=== PATIENT | female | born 1990 | race Native Hawaiian/Other Pacific Islander ===

== ENCOUNTER 2023-04-18 13:45 | Emergency (ER) | payer OTHER, SELFPAY ==
[2023-04-18 14:10] VITALS: PULSE 79; RESP 18; TEMP 36.9; O2SAT 99; BMI 31.1
--- NOTE | 2023-04-18 14:24 | ED_ITS ---
Discharge Plan Disposition Patient Disposition: Home, Self-Care Condition: Good Prescriptions Prescriptions: New phenazopyridine [Pyridium] 200 mg tablet 200 mg PO Q8H 2 Days Qty: 6 0RF ondansetron 4 mg Tablet,Disintegrating 4 mg PO Q8H PRN (Reason: Nausea) Qty: 12 0RF nitrofurantoin monohyd/m-cryst [Macrobid] 100 mg Capsule 100 mg PO BID Qty: 10 0RF Rx Instructions: must administer with a meal/food No Action montelukast 10 mg tablet 10 mg PO DAILY Patient Comments: TAKE 1 TABLET BY MOUTH ONCE DAILY AT BEDTIME hydroxyzine HCl 25 mg tablet 25 mg PO DAILY levocetirizine 5 mg tablet 5 mg PO DAILY Patient Comments: TAKE 1 TABLET BY MOUTH ONCE DAILY IN THE EVENING Referrals Follow up/Referrals: Bonifacio Ponce MD [Primary Care Provider] - See instructions Activity Restrictions/Add. Instructions Additional Instructions/Restrictions: Drink plenty of fluids. Take tylenol or ibuprofen for pain or fever. Take the medications as directed. Follow up with your regular doctor. GO TO THE ER FOR ANY WORSENING SYMPTOMS The pyridium will make your urine turn orange, this is an expected side effect. It will stain your clothes if it comes into contact with them. We will culture the urine. That will tell what bacteria is causing your infection and which antibiotics will treat it best. Sometimes the first antibiotic we prescribe turns out to not work against different bacteria. So, make sure you follow up within 3 days if you are not getting better. Clinical Impressions Clinical Impression: UTI (urinary tract infection) Instructions Patient Instructions: Urinary Tract Infection, DI for Urinary Tract Infection (UTI), Urine Culture, Phenazopyridine Discharge ED Provider: Ludwin Acevedo [facility] General Stated complaint: frequant unrination back pain burning urination Mode of Arrival: Ambulatory Source of Information: Patient Limitations: No Limitations Time Seen by Provider: 04/18/23 14:24 Description of Symptoms (Recalled from Triage Doc. by RN): Pt's symptoms are burning urination, urgency, and lower bck pain. HEENT Symptoms (Recalled from RN notes): No Resp Symptoms (Recalled from RN notes): No Skin Symptoms (Recalled from RN notes): No MS Symptoms (Recalled from RN notes): No Functional Status (Recalled from RN notes): n/a History of Present Illness Provider Complaint: She states that for the past 2 days she has had dysuria, urinary frequency, and low back pain. Related Data Home Medications Medication Instructions Recorded Confirmed hydroxyzine HCl 25 mg tablet 25 mg PO DAILY 04/18/23 04/18/23 levocetirizine 5 mg tablet 5 mg PO DAILY 04/18/23 04/18/23 montelukast 10 mg tablet 10 mg PO DAILY 04/18/23 04/18/23 Previous Rx's Medication Instructions Recorded nitrofurantoin 100 mg PO BID #10 caps 04/18/23 monohydrate/macrocrystals 100 mg capsule (Macrobid) ondansetron 4 mg disintegrating 4 mg PO Q8H PRN Nausea #12 tabs 04/18/23 tablet phenazopyridine 200 mg tablet 200 mg PO Q8H 2 days #6 tabs 04/18/23 (Pyridium) Allergies Allergy/AdvReac Type Severity Reaction Status Date / Time clarithromycin [From Biaxin] Allergy Verified 04/18/23 14:21 Sulfa (Sulfonamide Allergy Verified 04/18/23 14:21 Antibiotics) Worker's Comp Is this a Worker's Comp case?: No [facility] Disclaimer: The information contained in this section may have been updated after the patient was seen, as this information can be updated by other users. Social History Smoking Status: Never smoker alcohol intake: never current occupational status: employed Travel in the last 8 weeks: None ROS Obtained: Yes All systems reviewed & no additional complaints except as documented Constitutional Constitutional: Reports system reviewed and no additional complaints, except as documented, Denies chills and Denies fever(s) Eyes Eyes: Denies eye discharge ENT Ears, Nose, Mouth, and Throat: Denies dysphagia, Denies sore throat and Denies throat swelling Cardiovascular Cardiovascular: Denies chest pain and Denies dyspnea Respiratory Respiratory: Denies chest congestion, Denies cough and Denies dyspnea Gastrointestinal Gastrointestingal: Denies abdominal pain, constipation, diarrhea, dysphagia, nausea or vomiting Genitourinary Female Genitourinary: Reports as per HPI, Reports dysuria, Reports urinary frequency, Denies urinary incontinence, Reports urinary hesitancy and Reports urinary urgency Musculoskeletal Musculoskeletal: Denies arthralgias and Reports back pain Integumentary/Breasts Skin/Breast: Denies rash Neurologic Neurologic: Denies paresthesias Allergic/Immunologic Allergic/Immunologic: Denies throat swelling Physical Exam General General appearance: alert and in no apparent distress Head Head exam: atraumatic and normocephalic Eye Eye exam: Present normal appearance, PERRL and EOMI ENT ENT exam: Present normal exam, mucous membranes moist, TM's normal bilaterally and normal external ear exam Neck Neck exam: Present normal inspection, full ROM and trachea midline; Absent tenderness, meningismus or lymphadenopathy Chest Chest inspection: Present normal inspection and symmetric chest wall rise; Absent tenderness Respiratory Respiratory exam: Present normal lung sounds bilaterally; Absent respiratory distress, wheezes or stridor Cardiovascular Cardiovascular exam: Present regular rate, normal rhythm and normal heart sounds Abdominal Exam Abdominal exam: Present soft and normal bowel sounds; Absent distention, tenderness, guarding, rebound, rigidity, incision, psoas sign, obturator sign, heel tap sign, Montague's sign, Rovsing's sign or tenderness at McBurney's Point Extremities Exam Extremities exam: Present normal inspection, full ROM and normal capillary refill; Absent tenderness, edema, joint swelling, calf tenderness or cyanosis Back Exam Back exam: Present normal inspection and full ROM; Absent tenderness, CVA tenderness (R) or CVA tenderness (L) Neurological Exam Neurological exam: Present alert, oriented X3 and normal gait Psychiatric Psychiatric exam: Present normal affect and normal mood Skin Skin exam: Present warm, dry, intact and normal color Lymphatic Lymphatic Findings: no adenopathy Medical Decision Making Medical Records Medical records reviewed: No I reviewed the patient's medical records. Master Inquiry Pt receiving controlled substance: No Vital Signs: 04/18/23 14:10 Temperature 98.5 F Temperature Source Oral Pulse Rate [Right Radial] 79 Respiratory Rate 18 02 Sat by Pulse Oximetry 99 Oxygen Delivery Method Room Air Lab Data Lab results reviewed: Yes I reviewed the patient's lab results. Orders (Tests/Meds): ORDERS Category Date Time Status Urine Culture Stat Micro 04/18/23 14:23 Ordered
[2023-04-18 14:37] LABS: Color,Urine Red (Yellow)
[2023-04-18 14:38] LABS: Apearance,Urine Clear (Clear); Bilirubin,Urine Negative (Negative); Blood, Urine 3+ (Negative); Glucose,Urine (UA) 1+ (Negative); Ketones,Urine Negative (Negative); Protein,Urine 1+ (Negative); Specific Gravity, Urine 1.005 (1.005-1.030); UTC Leukocyte Esterase,Urine 3+ (Negative); UTC Nitrate,Urine Positive (Negative); Urobilinogen,Urine 2 EU/dl (0.2)
[2023-04-18 14:56] VITALS: BP 0/0; PULSE 79; RESP 18; TEMP 36.9; O2SAT 99
== END 2023-04-18 14:56 | disposition home or self-care (01) ==
PROVIDERS: Emergency Provider Nurse Practitioner Family; PCP Internal Medicine Adolescent Medicine
DX: N39.0 Urinary tract infection, site not specified (principal); B96.29 Other Escherichia coli [E. coli] as the cause of diseases classified elsewhere; M54.59 Other low back pain
CPT/HCPCS: 81003; 87086; 99204; 99212; G0463

== ENCOUNTER 2023-05-10 13:40 | Outpatient (CLI) | payer OTHER, SELFPAY ==
--- NOTE | 2023-05-10 13:51 | US_ITS ---
FINAL REPORT TECHNIQUE: Ultrasound images of the thyroid were obtained. CLINICAL HISTORY: GOITER FINDINGS: The right lobe of the thyroid measures 4.47 cm, upper limits of normal in size. It is normal in echogenicity. The left lobe of the thyroid measures 5.35 cm, somewhat enlarged. It is normal in echogenicity. There are small bilateral thyroid nodules. Nodule 1 right: 3 x 3 x 3 mm. Solid, TI-RADS category 4. Nodule 2 right: 4 x 3 x 2 mm, solid, hypoechoic, TI-RADS category 4. Nodule 3 right: 4 x 3 x 2, solid, hypoechoic, TI-RADS category 4. Nodule 4 left: 4 x 3 x 2 mm, solid, hypoechoic, TI-RADS category 4. IMPRESSION: Multinodular goiter. No follow-up recommended. Reviewed, Interpreted and Dictated by Eric Griggs III, MD Transcribed by [facility] Authenticated and [facility]
== END 2023-05-10 23:59 ==
LOC: RAD 13:41
PROVIDERS: PCP Internal Medicine Adolescent Medicine; Visit Provider Physician Assistant
DX: E04.9 Nontoxic goiter, unspecified (principal)
CPT/HCPCS: 76536

== ENCOUNTER 2023-09-03 09:31 | Outpatient (CLI) | payer OTHER, SELFPAY ==
[2023-09-03 11:34] LABS: Free T4 (Free Thyroxine) 2.11 ng/dl (0.78-2.19)
[2023-09-03 11:48] LABS: Thyroid Stimulating Hormone < 0.02 uIU/mL (0.465-4.68)
== END 2023-09-03 23:59 | disposition home or self-care (01) ==
LOC: LAB 09:31
PROVIDERS: PCP Internal Medicine Adolescent Medicine; Visit Provider Otolaryngology
DX: E04.1 Nontoxic single thyroid nodule (principal)
CPT/HCPCS: 36415; 84439; 84443

== ENCOUNTER 2023-11-11 11:24 | Outpatient (CLI) | payer OTHER, SELFPAY ==
[2023-11-11 13:07] LABS: Hemoglobin A1C 4.7 % (4.0-6.0)
[2023-11-11 13:24] LABS: T4 (Thyroxine) 9.8 ug/dl (5.53-11.0)
[2023-11-11 13:38] LABS: Thyroid Stimulating Hormone 2.54 uIU/mL (0.465-4.68)
[2023-11-11 14:09] LABS: 25-OH Vitamin D, Total 61.4 ng/mL (30-100)
[2023-11-12 10:43] LABS: Thyroid Peroxidase Antibodies <9 IU/mL (0-34); Triiodothyronine (T3) Total 169 ng/dL (71-180)
[2023-11-12 17:43] LABS: FSH 4.1 mIU/mL (.); Insulin Level Total 2.1 uIU/mL (2.6-24.9); LH 8.4 mIU/mL (.); Prolactin 81.3 ng/mL (4.8-33.4)
[2023-11-12 17:43] LABS: Thyroglobulin Level <1.0 IU/mL (0.0-0.9)
[2023-11-14 01:06] LABS: Anti Mullerian Hormone (AMH) 4.08 ng/mL (.)
== END 2023-11-11 23:59 | disposition home or self-care (01) ==
LOC: LAB 11:26
PROVIDERS: Nurse Practitioner Women's Health; PCP Internal Medicine Adolescent Medicine; Visit Provider Clinical Nurse Specialist Adult Health
DX: E05.80 Other thyrotoxicosis without thyrotoxic crisis or storm (principal); N97.9 Female infertility, unspecified
CPT/HCPCS: 36415; 82306; 82397; 82626; 82670; 83001; 83002; 83036; 83525; 84144; 84146; 84436; 84443; 84480; 86376; 86800

== ENCOUNTER 2023-12-02 15:36 | Outpatient (CLI) | payer OTHER, SELFPAY ==
[2023-12-02 19:31] LABS: HCG,Quantitative 13189 mIU/ml (0-5.42)
[2023-12-04 10:41] LABS: Progesterone 7.8 ng/mL (.)
== END 2023-12-02 23:59 | disposition home or self-care (01) ==
LOC: LAB 15:37
PROVIDERS: PCP Internal Medicine Adolescent Medicine; Visit Provider Nurse Practitioner Women's Health
DX: Z32.01 Encounter for pregnancy test, result positive (principal)
CPT/HCPCS: 36415; 84144; 84702

== ENCOUNTER 2023-12-07 11:24 | Outpatient (CLI) | payer OTHER, SELFPAY ==
[2023-12-07 13:23] LABS: HCG,Quantitative 40502 mIU/ml (0-5.42)
[2023-12-08 15:18] LABS: Progesterone 13.4 ng/mL (.)
== END 2023-12-07 23:59 | disposition home or self-care (01) ==
PROVIDERS: PCP Internal Medicine Adolescent Medicine
DX: Z32.02 Encounter for pregnancy test, result negative (principal)
CPT/HCPCS: 36415; 84144; 84702

== ENCOUNTER 2023-12-26 14:52 | Emergency (ER) | payer OTHER, SELFPAY ==
--- NOTE | 2023-12-26 15:07 | ED_ITS ---
Discharge Plan Disposition Patient Disposition: Home, Self-Care Condition: Good Prescriptions Prescriptions: New cephalexin 500 mg capsule 500 mg PO QID 7 Days Qty: 28 0RF No Action fluticasone propionate 50 mcg/actuation spray,suspension 1 spray intranasal DAILY Patient Comments: USE 1 SPRAY(S) IN EACH NOSTRIL ONCE DAILY DHA 200 mg capsule PO cholecalciferol (vitamin D3) 25 mcg (1,000 unit) capsule 25 mcg PO DAILY nitrofurantoin monohyd/m-cryst 100 mg capsule 100 mg PO Q12H 7 Days Qty: 14 0RF Rx Instructions: must administer with a meal/food levothyroxine 50 mcg tablet 50 mcg PO DAILY Qty: 30 6RF montelukast 10 mg tablet 10 mg PO DAILY Patient Comments: TAKE 1 TABLET BY MOUTH ONCE DAILY AT BEDTIME hydroxyzine HCl 25 mg tablet 25 mg PO DAILY levocetirizine 5 mg tablet 5 mg PO DAILY Patient Comments: TAKE 1 TABLET BY MOUTH ONCE DAILY IN THE EVENING Referrals Follow up/Referrals: Bonifacio Ponce MD [Primary Care Provider] - See instructions Activity Restrictions/Add. Instructions Additional Instructions/Restrictions: Drink plenty of fluids. Take tylenol for pain or fever. Take the medications as directed. Follow up with your regular doctor. Follow up with your eviscerator physician. GO TO THE ER FOR ANY WORSENING SYMPTOMS We will culture the urine. That will tell what bacteria is causing your infection and which antibiotics will treat it best.This test takes 3 days to complete. Clinical Impressions Clinical Impression: UTI (urinary tract infection) Qualifiers: Urinary tract infection type: acute cystitis Hematuria presence: with hematuria Qualified Code(s): N30.01 - Acute cystitis with hematuria Instructions Patient Instructions: Urinary Tract Infection, DI for Urinary Tract Infection (UTI), Cephalexin Print Language Print Language: Georgian Discharge ED Provider: Ludwin Acevedo [facility] General Stated complaint: possible uti Time Seen by Provider: 12/26/23 15:07 Related Data Home Medications ?Medication ?Instructions ?Recorded ?Confirmed hydroxyzine HCl 25 mg tablet 25 mg PO DAILY 04/18/23 09/24/23 levocetirizine 5 mg tablet 5 mg PO DAILY 04/18/23 09/24/23 montelukast 10 mg tablet 10 mg PO DAILY 04/18/23 09/24/23 cholecalciferol (vitamin D3) 25 25 mcg PO DAILY 05/31/23 09/24/23 mcg (1,000 unit) capsule docosahexaenoic acid 200 mg mg PO 05/31/23 09/24/23 capsule ( DHA) fluticasone propionate 50 1 spray intranasal DAILY 09/06/23 09/24/23 mcg/actuation nasal spray,suspension Previous Rx's ?Medication ?Instructions ?Recorded levothyroxine 50 mcg tablet 50 mcg PO DAILY #30 tabs 09/13/23 nitrofurantoin 100 mg PO Q12H 7 days #14 caps 09/24/23 monohydrate/macrocrystals 100 mg capsule cephalexin 500 mg capsule 500 mg PO QID 7 days #28 caps 12/26/23 Allergies Allergy/AdvReac Type Severity Reaction Status Date / Time clarithromycin [From Biaxin] Allergy Verified 09/24/23 08:47 Sulfa (Sulfonamide Allergy Verified 09/24/23 08:47 Antibiotics) [facility] Disclaimer: The information contained in this section may have been updated after the patient was seen, as this information can be updated by other users. Medical History Vasovagal episode She became vagal after I had completed examining her nose. She notes this happens very frequently when examined by doctors. She was monitored and did well. Thyroid nodule Enlarged thyroid Surgical History History of myringotomy History of wisdom tooth extraction Family History (Updated 09/24/23 @ 08:48 by Tiarra Vines) Other No significant family history Social History Smoking Status: Never smoker alcohol intake: never current occupational status: employed Travel in the last 8 weeks: None ROS Obtained: Yes All systems reviewed & no additional complaints except as documented Constitutional Constitutional: Reports system reviewed and no additional complaints, except as documented, Denies chills and Denies fever(s) Eyes Eyes: Denies eye discharge ENT Ears, Nose, Mouth, and Throat: Denies dysphagia, Denies sore throat and Denies throat swelling Cardiovascular Cardiovascular: Denies chest pain and Denies dyspnea Respiratory Respiratory: Denies chest congestion, Denies cough and Denies dyspnea Gastrointestinal Gastrointestingal: Denies abdominal pain, constipation, diarrhea, dysphagia, nausea or vomiting Genitourinary Female Genitourinary: Reports as per HPI, Reports dysuria, Reports urinary frequency, Denies urinary incontinence, Reports urinary hesitancy and Reports urinary urgency Musculoskeletal Musculoskeletal: Denies arthralgias and Reports back pain Integumentary/Breasts Skin/Breast: Denies rash Neurologic Neurologic: Denies paresthesias Allergic/Immunologic Allergic/Immunologic: Denies throat swelling Physical Exam General General appearance: alert and in no apparent distress Head Head exam: atraumatic and normocephalic Eye Eye exam: Present normal appearance, PERRL and EOMI ENT ENT exam: Present normal exam, mucous membranes moist, TM's normal bilaterally and normal external ear exam Neck Neck exam: Present normal inspection, full ROM and trachea midline; Absent tenderness, meningismus or lymphadenopathy Chest Chest inspection: Present normal inspection and symmetric chest wall rise; Absent tenderness Respiratory Respiratory exam: Present normal lung sounds bilaterally; Absent respiratory distress, wheezes or stridor Cardiovascular Cardiovascular exam: Present regular rate, normal rhythm and normal heart sounds Abdominal Exam Abdominal exam: Present soft and normal bowel sounds; Absent distention, tenderness, guarding, rebound, rigidity, incision, psoas sign, obturator sign, heel tap sign, Montague's sign, Rovsing's sign or tenderness at McBurney's Point Extremities Exam Extremities exam: Present normal inspection, full ROM and normal capillary refill; Absent tenderness, edema, joint swelling, calf tenderness or cyanosis Back Exam Back exam: Present normal inspection and full ROM; Absent tenderness, CVA tenderness (R) or CVA tenderness (L) Neurological Exam Neurological exam: Present alert, oriented X3 and normal gait Psychiatric Psychiatric exam: Present normal affect and normal mood Skin Skin exam: Present warm, dry, intact and normal color Lymphatic Lymphatic Findings: no adenopathy Medical Decision Making Medical Records Medical records reviewed: No I reviewed the patient's medical records. Screening: Per USPSTF and CDC recommendations, given the prevalence of disease in our region, it is our hospital?s policy to screen for HIV and viral Hepatitis for all patients aged 18 and over and those with ongoing risk factors. Master Inquiry Pt receiving controlled substance: No Lab Data Lab results reviewed: Yes I reviewed the patient's lab results.
[2023-12-26 15:08] VITALS: BP 133/79; PULSE 88; RESP 18; TEMP 36.7; O2SAT 99; BMI 31.4
[2023-12-26 15:09] LABS: Apearance,Urine Clear (Clear); Bilirubin,Urine Negative (Negative); Blood, Urine Negative (Negative); Color,Urine Orange (Yellow); Glucose,Urine (UA) Negative (Negative); Ketones,Urine Negative (Negative); PH,Urine 5.5 (5.0-8.5); Protein,Urine Negative (Negative); Specific Gravity, Urine 1.015 (1.005-1.030); Urobilinogen,Urine 0.2 EU/dl (0.2)
[2023-12-26 15:10] LABS: UTC Leukocyte Esterase,Urine Trace (Negative); UTC Nitrate,Urine Positive (Negative)
[2023-12-26 15:20] VITALS: BP 133/79; PULSE 88; RESP 18; TEMP 36.7; O2SAT 99
== END 2023-12-26 15:21 | disposition home or self-care (01) ==
PROVIDERS: Emergency Provider Nurse Practitioner Family; PCP Internal Medicine Adolescent Medicine
DX: O23.41 Unspecified infection of urinary tract in pregnancy, first trimester (principal); N30.01 Acute cystitis with hematuria; B96.89 Other specified bacterial agents as the cause of diseases classified elsewhere; Z3A.09 9 weeks gestation of pregnancy
CPT/HCPCS: 81003; 87086; 99212; 99214; G0463

== ENCOUNTER 2024-06-17 01:07 | Emergency (ER) | payer BC, SELFPAY ==
[2024-06-17 01:17] VITALS: BP 105/61; PULSE 123; RESP 14; TEMP 36.6; O2SAT 98; BMI 33.9
--- NOTE | 2024-06-17 01:17 | ED_ITS ---
Discharge Plan Disposition Patient Disposition: Home, Self-Care Prescriptions Prescriptions: New ondansetron HCl 4 mg tablet 4 mg PO Q8H PRN (Reason: nausea and vomiting) 5 Days Qty: 30 0RF No Action fluticasone propionate 50 mcg/actuation spray,suspension 1 spray intranasal DAILY Patient Comments: USE 1 SPRAY(S) IN EACH NOSTRIL ONCE DAILY DHA 200 mg capsule PO cholecalciferol (vitamin D3) 25 mcg (1,000 unit) capsule 25 mcg PO DAILY nitrofurantoin monohyd/m-cryst 100 mg capsule 100 mg PO Q12H 7 Days Qty: 14 0RF Rx Instructions: must administer with a meal/food levothyroxine 50 mcg tablet 50 mcg PO DAILY Qty: 30 6RF montelukast 10 mg tablet 10 mg PO DAILY Patient Comments: TAKE 1 TABLET BY MOUTH ONCE DAILY AT BEDTIME hydroxyzine HCl 25 mg tablet 25 mg PO DAILY levocetirizine 5 mg tablet 5 mg PO DAILY Patient Comments: TAKE 1 TABLET BY MOUTH ONCE DAILY IN THE EVENING cephalexin 500 mg capsule 500 mg PO QID 7 Days Qty: 28 0RF Referrals Follow up/Referrals: Bonifacio Ponce MD [Primary Care Provider] - See instructions Activity Restrictions/Add. Instructions Additional Instructions/Restrictions: Please follow-up with your ACUTE CARE OCCUPATIONAL THERAPIST. Please return to the emergency department if you develop any new or worsening symptoms or become concerned for your health. Clinical Impressions Clinical Impression: Nausea vomiting and diarrhea, 34 weeks gestation of Instructions Patient Instructions: DI for Diarrhea and Traveler's Diarrhea -- Adult, DI for Diarrhea and Traveler's Diarrhea -- Child, DI for Nausea -- Adult, DI for Nausea -- Child Print Language Print Language: Welsh Discharge ED Provider: Bill Melo General Adult HPI General Chief complaint: Nausea/Vomiting/Diarrhea Stated complaint: 34 wks ante, vomiting, diarrhea Time Seen by Provider: 06/17/24 01:16 History of Present Illness HPI narrative: 34-year-old female, at 34 weeks presents for nausea vomiting diarrhea and abdominal cramping. She reports that her other child has a stomach bug several days ago but has been better. She started having symptoms this afternoon and it has been worsening. She is having cramps in her lower abdomen and is concerned she could be having intermittent contractions. She denies any fever. Denies any significant past medical history. Related Data Home Medications ?Medication ?Instructions ?Recorded ?Confirmed hydroxyzine HCl 25 mg tablet 25 mg PO DAILY 04/18/23 09/24/23 levocetirizine 5 mg tablet 5 mg PO DAILY 04/18/23 09/24/23 montelukast 10 mg tablet 10 mg PO DAILY 04/18/23 09/24/23 cholecalciferol (vitamin D3) 25 25 mcg PO DAILY 05/31/23 09/24/23 mcg (1,000 unit) capsule docosahexaenoic acid 200 mg mg PO 05/31/23 09/24/23 capsule ( DHA) fluticasone propionate 50 1 spray intranasal DAILY 09/06/23 09/24/23 mcg/actuation nasal spray,suspension Previous Rx's ?Medication ?Instructions ?Recorded levothyroxine 50 mcg tablet 50 mcg PO DAILY #30 tabs 09/13/23 nitrofurantoin 100 mg PO Q12H 7 days #14 caps 09/24/23 monohydrate/macrocrystals 100 mg capsule cephalexin 500 mg capsule 500 mg PO QID 7 days #28 caps 12/26/23 ondansetron HCl 4 mg tablet 4 mg PO Q8H PRN nausea and 06/17/24 vomiting 5 days #30 tabs Allergies Allergy/AdvReac Type Severity Reaction Status Date / Time clarithromycin (From Biaxin) Allergy Verified 09/24/23 08:47 Sulfa (Sulfonamide Allergy Verified 09/24/23 08:47 Antibiotics) [facility] Disclaimer: The information contained in this section may have been updated after the patient was seen, as this information can be updated by other users. Medical History Vasovagal episode She became vagal after I had completed examining her nose. She notes this happens very frequently when examined by doctors. She was monitored and did well. Thyroid nodule Enlarged thyroid Surgical History History of myringotomy History of wisdom tooth extraction Family History (Updated 09/24/23 @ 08:48 by Tiarra Vines) Other No significant family history Social History Smoking Status: Never smoker alcohol intake: never current occupational status: employed Travel in the last 8 weeks: None Have you lived/traveled outside [place] in past 30 days?: No Contact w/someone who lives/traveled outside [place] past 30 days?: No Exposure to someone with infectious disease in past 14 days?: No Do you have a fever (greater than 100.4 F or 38 C)?: No Have you tested positive for COVID-19: No Exposed to someone with COVID-19 in past 14 days?: No Do you have a sore throat?: No Do you have a cough?: No Do you have any weakness?: No Do you have any diarrhea?: Yes Are you experiencing any unusual bleeding?: No Do you have any muscle aches/pain?: No Do you have any abdominal pain?: No Are you experiencing loss of taste or smell?: No Other Medical History Have you received the Pneumonia Vaccine: No ROS Obtained: Yes All systems reviewed & no additional complaints except as documented Physical Exam General General appearance: alert and in no apparent distress Head Head exam: atraumatic and normocephalic Eye Eye exam: Present normal appearance, PERRL and EOMI ENT ENT exam: Present normal oropharynx and normal external ear exam Neck Neck exam: Present normal inspection and full ROM Chest Chest inspection: Present normal inspection and symmetric chest wall rise; Absent tenderness Respiratory Respiratory exam: Present normal lung sounds bilaterally; Absent respiratory distress Cardiovascular Cardiovascular exam: Present regular rate and normal rhythm Abdominal Exam Abdominal exam: Present soft and distention (Gravid uterus, nontender); Absent tenderness or guarding Extremities Exam Extremities exam: Present normal inspection; Absent edema or joint swelling Back Exam Back exam: Present normal inspection; Absent tenderness Neurological Exam Neurological exam: Present alert and oriented X3; Absent motor sensory deficit Psychiatric Psychiatric exam: Present normal affect and normal mood Skin Skin exam: Present warm, dry and normal color Lymphatic Lymphatic Findings: no adenopathy Medical Decision Making Medical Records Medical records reviewed: Yes I reviewed the patient's medical records. Screening: Per USPSTF and CDC recommendations, given the prevalence of disease in our region, it is our hospital?s policy to screen for HIV and viral Hepatitis for all patients aged 18 and over and those with ongoing risk factors. Master Inquiry Pt receiving controlled substance: No Master was queried for this patient: No Vital Signs: 06/17/24 01:17 06/17/24 02:20 06/17/24 02:30 Temperature 97.8 F Temperature Source Oral Pulse Rate 101 H 108 H Pulse Rate [Right] 123 H Respiratory Rate 14 Blood Pressure 122/70 Blood Pressure [Right Arm] 105/61 L Blood Pressure Mean [Right Arm] 75 Blood Pressure Source Blood Pressure Source [Right Arm] Automatic Cuff Blood Pressure Position Blood Pressure Position [Right Arm] Supine 02 Sat by Pulse Oximetry 98 96 97 Oxygen Delivery Method Room Air 06/17/24 03:48 Temperature 97.9 F Temperature Source Oral Pulse Rate 105 H Pulse Rate [Right] Respiratory Rate 20 Blood Pressure 133/75 Blood Pressure [Right Arm] Blood Pressure Mean [Right Arm] Blood Pressure Source Automatic Cuff Blood Pressure Source [Right Arm] Blood Pressure Position Sitting Blood Pressure Position [Right Arm] 02 Sat by Pulse Oximetry Oxygen Delivery Method Room Air Lab Data Lab results reviewed: Yes I reviewed the patient's lab results. Lab Results 06/17/24 01:47: WBC 8.3, RBC 4.01 L, Hgb 12.3, Hct 37.0, MCV 92.3, MCH 30.7, MCHC 33.2, RDW 12.9, Plt Count 164, MPV 11.3 H, Neut % (Auto) 85.3 H, Lymph % (Auto) 5.8 L, [place] % (Auto) 5.2, Eos % (Auto) 0.7, Baso % (Auto) 0.5, Neut # (Auto) 7.1, Lymph # (Auto) 0.5 L, [place] # (Auto) 0.4, Eos # (Auto) 0.1, Baso # (Auto) 0.0, Sodium 133 L, Potassium 3.6, Chloride 106, Carbon Dioxide 19 L, Anion Gap 11.6, BUN 6 L, Creatinine 0.50 L, Estimated Creat Clear 241, Estimated GFR 142, Est GFR ( Amer) 172, Glucose 91, Calcium 8.3 L, Total Bilirubin 1.5 H, AST 47 H, ALT 52, Alkaline Phosphatase 131 H, Total Protein 6.4, Albumin 3.6, Globulin 2.8, Albumin/Globulin Ratio 1.3 06/17/24 02:00: SARS-CoV-2 (PCR) Not detected, Influenza A Untype (PCR) Not detected, Influenza Type B (PCR) Not detected 06/17/24 01:47 06/17/24 01:47 Orders (Tests/Meds): ED MEDICATIONS Discontinued Medications Generic Name Dose Route Start Last Admin Trade Name Milo PRN Reason Stop Dose Admin Lactated Ringer's 1,000 mls @ 999 mls/hr 06/17/24 01:45 06/17/24 01:42 Lactated Ringer's 1000 Ml Bag IV 06/17/24 02:45 999 mls/hr .Q1H1M CARLY Administration Ondansetron HCl 4 mg 06/17/24 01:25 06/17/24 01:33 Ondansetron 4mg Odt SL 06/17/24 01:26 Not Given ONCE ONE ORDERS Category Date Time Status CBC w/Auto Diff [Complete Blood Count Auto Diff] Stat Lab 06/17/24 01:47 Completed CMP [Comprehensive Metabolic Panel] Stat Lab 06/17/24 01:47 Completed Rapid PCR Covid and Flu A/B Stat Lab 06/17/24 02:00 Completed Medical Decision Narrative: 34-year-old female G2, P1 at 34 weeks presents for 1 day of nausea vomiting diarrhea. Here with some abdominal cramps. History was obtained via interactive discussion with patient family chart review. On arrival, patient is [afebrile, hemodynamically stable, satting appropriately, alert, oriented x4, GCS 15], moving all extremities spontaneously. Full physical exam performed and significant for no significant abdominal tenderness. heart tones 175 Differential includes but is not limited to food poisoning, gastroenteritis, dehydration, labor. Patient was given Zofran, 1 L IV fluid bolus for symptomatic management and correction of underlying abnormalities. Workup initiated including CBC CMP mag. OB was contacted for NST. On re-evaluation, patient [remains afebrile, HD stable.] Laboratory workup independently interpreted by me and significant for no significant leukocytosis or electrolyte derangement. Normal renal function. NST was reactive with patient having intermittent contractions according to ACUTE CARE OCCUPATIONAL THERAPIST. Interact discussion was had with patient regarding presentation. She reports that she is feeling much better, no longer having any abdominal pain. I offered her obstetric admission for continued monitoring. She reports that she feels much better and only lives 3 minutes away and would prefer to go home and come back if anything were to change. Given this, patient was discharged in stable condition with return precautions and prescription for Zofran. Given patient history, exam and workup, patient's presentation most likely represents gastroenteritis. Procedures Risk/Benefits of Procedure(s) Were Explained: Yes Critical Care Critical Care Time Critical Care Time: No
--- NOTE | 2024-06-17 01:32 | PC.NURSE ---
heart tones obtained per doppler with a rate of 175, movement noted while obtaining.
--- NOTE | 2024-06-17 01:36 | PC.NURSE ---
OB RN notified by Transit Operator of order for NST in ED
[2024-06-17] MEDS: LACTATED RINGERS 1000ML 1,000 ML 999 ML IV (01:42)
--- NOTE | 2024-06-17 01:45 | PC.NURSE ---
OB RN at patient bedside and applying monitors. Patient reports mild abdominal cramping related to contractions, pain 2/10. Patient reporting good FM and denies vaginal bleeding or leaking of fluid. FHR auscultated at 158 upon application of ultrasound. Abdomen soft and nontender. Audible movement upon application of monitors.
[2024-06-17 01:57] LABS: Basophils % 0.5 % (0.1-2.0); Eosinophils # 0.1 K/mm3 (0.0-0.4); Eosinophils % 0.7 % (0.1-12.0); Hemoglobin 12.3 g/dL (12.2-16.2); Lymphocytes # 0.5 K/mm3 (0.7-4.5); Lymphocytes % 5.8 % (10-50); Mean Corpuscular HGB Conc 33.2 g/dL (31.8-35.4); Mean Corpuscular Hemoglobin 30.7 pg (27.0-31.2); Mean Corpuscular Volume 92.3 fl (81-99); Mean Platelet Volume 11.3 fl (7.4-10.4); Monocytes # 0.4 K/mm3 (0.1-1.0); Monocytes % 5.2 % (1.7-9.3); Neutrophils # 7.1 K/mm3 (1.8-7.8); Neutrophils % 85.3 % (37.0-80.0); Platelet Count 164 K/mm3 (142-424); Red Blood Count 4.01 M/mm3 (4.20-5.40); Red Cell Distribution Width 12.9 % (11.5-17.5); White Blood Count 8.3 K/mm3 (4.8-10.8)
[2024-06-17 02:02] LABS: Coronavirus 19, PCR Not Detected (NotDetected); Influenza A, PCR Not Detected (NotDetected); Influenza B, PCR Not Detected (NotDetected)
[2024-06-17 02:03] LABS: Albumin Level 3.6 g/dl (3.5-5.0); Chloride 106 mmol/L (98-107); Potassium 3.6 mmoL/L (3.5-5.1); Sodium 133 mmol/L (136-145)
[2024-06-17 02:06] LABS: Alanine Aminotransferase 52 U/L (12-78); Albumin/Globulin Ratio 1.3 (1.1-1.8); Alkaline Phosphatase 131 U/L (38-126); Anion Gap 11.6 mEq/L (5-15); Aspartate Amino Transferase 47 U/L (14-36); Bilirubin,Total 1.5 mg/dl (0.2-1.3); Blood Urea Nitrogen 6 mg/dl (7-17); Carbon Dioxide 19 mmol/L (22.0-30.0); Creatinine Clearance Estimated 241 mL/min (50-200); Estimated Glomerular Filt Rate 142 ml/min (>60); GFR (African American) 172 ML/MIN (>60); Globulin 2.8 g/dL (1.3-3.2); Total Protein,Serum 6.4 g/dl (6.3-8.2)
[2024-06-17 02:07] LABS: Calcium 8.3 mg/dl (8.4-10.2); Glucose 91 mg/dl (74-100)
[2024-06-17 02:20] VITALS: PULSE 101; O2SAT 96
--- NOTE | 2024-06-17 02:28 | PC.NURSE ---
Contractions noted every 4-5.5 minutes, lasting 40-70 seconds. FHR baseline 150 with moderate variability and 15x15 accelerations. Numerous movements marked by patient. NST reactive at this time.
[2024-06-17 02:30] VITALS: BP 122/70; PULSE 108; O2SAT 97
--- NOTE | 2024-06-17 03:00 | PC.NURSE ---
Contractions noted every 6-6.5 minutes, lasting 50-60 seconds and with irritability. FHR baseline 155 with moderate variability and 15x15 accelerations. Reactive category 1 EFM.
--- NOTE | 2024-06-17 03:13 | PC.NURSE ---
RACING SECRETARY AND HANDICAPPER at the bedside to check up on patient. Pt lying in bed, NAD noted, RR even and non labored, skin pwd.
--- NOTE | 2024-06-17 03:30 | PC.NURSE ---
Contractions noted 4.5-5.5 minutes, lasting 40-60 seconds. FHR baseline 150 with moderate variability and 15x15 accelerations. Reactive category 1 EFM.
--- NOTE | 2024-06-17 03:40 | PC.NURSE ---
Irregular contractions and irritability noted. FHR baseline 155 with moderate variability and 15x15 accelerations. Category 1 EFM. Monitors D/C'd per ED staff
[2024-06-17 03:48] VITALS: BP 133/75; PULSE 105; RESP 20; TEMP 36.6; O2SAT 98
== END 2024-06-17 03:50 | disposition home or self-care (01) ==
PROVIDERS: Emergency Provider Emergency Medicine; PCP Internal Medicine Adolescent Medicine
DX: O26.899 Other specified pregnancy related conditions, unspecified trimester (principal); R10.30 Lower abdominal pain, unspecified; R11.2 Nausea with vomiting, unspecified; R19.7 Diarrhea, unspecified; Z3A.34 34 weeks gestation of pregnancy
CPT/HCPCS: 80053; 85025; 87636; 96360; 99283; J7120